=== PATIENT | male | born 1980 | race African-American/Black ===

== ENCOUNTER → 2022-10-09 | Outpatient (CLI) | payer OTHER | LOC: M RAD 06:47 | PROVIDERS: ATTEND Physician Assistant | DX: M25.512 Pain in left shoulder (principal); S43.432A Superior glenoid labrum lesion of left shoulder, initial encounter; X58.XXXA Exposure to other specified factors, initial encounter; Y92.9 Unspecified place or not applicable ==

== ENCOUNTER → 2023-03-17 | Outpatient (CLI) | payer OTHER | LOC: M RAD 07:42 | PROVIDERS: ATTEND Internal Medicine Gastroenterology | DX: R93.2 Abnormal findings on diagnostic imaging of liver and biliary tract (principal) ==